=== PATIENT | female | born 1940 | race Caucasian/White ===

== ENCOUNTER 2017-05-08 14:45 | Observation (INO) | payer MEDICARE, OTHER ==
[~2017-05-08] VITALS: Ht 157.5 cm; Wt 80.0 kg
[2017-05-08 14:47] VITALS: BP 140/64; PULSE 97; RESP 12; O2SAT 99
--- NOTE | 2017-05-08 15:36 | PD ---
HPI Chief Complaint: Neuro Symptoms/ Deficits Time Seen by Provider: 15:20 Travel History International Travel<30 days: No Contact w/Intl Traveler<30days: No Traveled to known affect area: No History of Present Illness HPI 77-year-old female presents to the emergency department for evaluation of headache, nausea and lightheadedness that started this morning. Patient went to her primary care physician Dr. Sanchez initially for evaluation. Dr. Sanchez noticed nystagmus on physical exam and referred the patient to the emergency department. Patient denies any recent traumas or falls. Patient denies any chest pain or shortness of breath. Patient denies any prior neurological events. Patient denies any abdominal pain, vomiting or diarrhea. Patient denies any fevers, chills or malaise. PFSH Past Medical History Autoimmune Disease: Yes (RA LUPUS) Cardiovascular Problems: Yes COPD: Yes Hypertension: Yes Medical other: Yes (OSTEOPOROSIS) Respiratory: Yes ?: Not Past Surgical History Appendectomy: Yes Hysterectomy: Yes Joint Replacement: Yes (BILAT KNEE) Tonsillectomy: Yes Other Surgery: Yes (CATARACTS) Social History Alcohol Use: Yes (occ) Tobacco Use: No Substance Use: No Allergies-Medications (Allergen,Severity, Reaction): Uncoded Allergies: TAPE (Allergy, Intermediate, Rash, 05/08/17) Reported Meds & Prescriptions Reported Meds & Active Scripts Active Review of Systems Except as stated in HPI: all other systems reviewed are Neg Physical Exam Narrative GENERAL: Well-nourished well-developed 77-year-old female in no acute distress SKIN: Focused skin assessment warm/dry. HEAD: Atraumatic. Normocephalic. EYES: Pupils equal and round. No scleral icterus. No injection or drainage. Horizontal bilateral nystagmus noted. ENT: No nasal bleeding or discharge. Mucous membranes pink and moist. NECK: Trachea midline. No JVD. CARDIOVASCULAR: Regular rate and rhythm. No murmur appreciated. RESPIRATORY: No accessory muscle use. Clear to auscultation. Breath sounds equal bilaterally. GASTROINTESTINAL: Abdomen soft, non-tender, nondistended. Hepatic and splenic margins not palpable. MUSCULOSKELETAL: No obvious deformities. No clubbing. No cyanosis. No edema. NEUROLOGICAL: Awake and alert. No obvious cranial nerve deficits. Motor grossly within normal limits. Normal speech. NIH stroke scale: 0. PSYCHIATRIC: Appropriate mood and affect; insight and judgment normal. Data Data Last Documented VS Vital Signs Date Time Temp Pulse Resp B/P (MAP) Pulse Ox O2 Delivery O2 Flow Rate FiO2 05/08/17 16:07 79 131/63 (85) 84 142/62 (88) 88 112/55 (74) 05/08/17 14:47 12 99 Orders Orders Electrocardiogram (05/08/17 15:24) Prothrombin Time / Inr (Pt) (05/08/17 15:24) Act Partial Throm Time (Ptt) (05/08/17 15:24) Complete Blood Count With Diff (05/08/17 15:24) Comprehensive Metabolic Panel (05/08/17 15:24) Creatine Kinase (Cpk) (05/08/17 15:24) Troponin I (05/08/17 15:24) Urinalysis - C+S If Indicated (05/08/17 15:24) Ct Brain W/O Iv Contrast(Rout) (05/08/17 15:24) Chest, Single Ap (05/08/17 15:24) Ecg Monitoring (05/08/17 15:24) Iv Access Insert/Monitor (05/08/17 15:24) Oxygen Administration (05/08/17 15:24) Oximetry (05/08/17 15:24) Blood Glucose (05/08/17 15:24) Orthostatic Vital Signs (05/08/17 15:24) Cath For Specimen (05/08/17 16:45) Aspirin (Aspirin) (05/08/17 17:00) Admit Order (Ed Use Only) (05/08/17 17:22) Labs Laboratory Tests Test 05/08/17 15:25 05/08/17 16:55 White Blood Count 7.6 TH/MM3 Red Blood Count 4.07 MIL/MM3 Hemoglobin 12.4 GM/DL Hematocrit 38.0 % Mean Corpuscular Volume 93.2 FL Mean Corpuscular Hemoglobin 30.5 PG Mean Corpuscular Hemoglobin Concent 32.8 % Red Cell Distribution Width 16.3 % Platelet Count 205 TH/MM3 Mean Platelet Volume 8.4 FL Neutrophils (%) (Auto) 68.0 % Lymphocytes (%) (Auto) 17.1 % Monocytes (%) (Auto) 13.2 % Eosinophils (%) (Auto) 1.2 % Basophils (%) (Auto) 0.5 % Neutrophils # (Auto) 5.2 TH/MM3 Lymphocytes # (Auto) 1.3 TH/MM3 Monocytes # (Auto) 1.0 TH/MM3 Eosinophils # (Auto) 0.1 TH/MM3 Basophils # (Auto) 0.0 TH/MM3 CBC Comment DIFF FINAL Differential Comment Prothrombin Time 10.0 SEC Prothromb Time International Ratio 0.9 RATIO Activated Partial Thromboplast Time 25.1 SEC Blood Urea Nitrogen 19 MG/DL Creatinine 1.27 MG/DL Random Glucose 92 MG/DL Total Protein 7.2 GM/DL Albumin 3.3 GM/DL Calcium Level 8.7 MG/DL Alkaline Phosphatase 88 U/L Aspartate Amino Transf (AST/SGOT) 25 U/L Alanine Aminotransferase (ALT/SGPT) 24 U/L Total Bilirubin 0.4 MG/DL Sodium Level 141 MEQ/L Potassium Level 3.9 MEQ/L Chloride Level 106 MEQ/L Carbon Dioxide Level 27.3 MEQ/L Anion Gap 8 MEQ/L Estimat Glomerular Filtration Rate 41 ML/MIN Total Creatine Kinase 47 U/L Troponin I LESS THAN 0.02 NG/ML Urine Color YELLOW Urine Turbidity HAZY Urine pH 5.5 Urine Specific [place] 1.020 Urine Protein TRACE mg/dL Urine Glucose (UA) NEG mg/dL Urine Ketones NEG mg/dL Urine Occult Blood NEG Urine Nitrite NEG Urine Bilirubin NEG Urine Urobilinogen LESS THAN 2.0 MG/DL Urine Leukocyte Esterase SMALL Urine RBC 1 /hpf Urine WBC 3 /hpf Urine Squamous Epithelial Cells 3 /hpf Urine Bacteria RARE /hpf Urine Hyaline Casts 9 /lpf Urine Mucus MOD /lpf Microscopic Urinalysis Comment CATH-CULTURE IND [facility] Medical Decision Making Medical Screen Exam Complete: Yes Emergency Medical Condition: Yes Medical Record Reviewed: Yes Differential Diagnosis TIA versus CVA versus electrolytic imbalance versus ACS versus dehydration versus near-syncope versus vertigo Narrative Course A 77-year-old pleasant female patient in no apparent distress presents to the emergency department with complaint of headache, nausea and lightheadedness that started this morning. Patient was referred here by primary care to rule out neurological event after nystagmus this was noted on physical exam. Patient denies any chest pain, shortness breath, fever, chills or malaise. Patient denies any abdominal pain, vomiting or diarrhea. Patient has history of hypertension, lipidemia, COPD and arthritis. Patient states "it feels like I stand up too fast" referring to the lightheadedness she is experiencing. NIH stroke scale: 0. No focal neurological deficits noted. EKG, CBC, CMP, PT/INR, troponin, CK, UA, CT of the brain without contrast, chest x-ray, and orthostatic vital signs ordered and pending. EKG shows sinus rhythm with heart rate 77 CBC shows no acute abnormality CMP shows impaired renal function and low albumin at 3.3 otherwise shows no acute abnormalities PT/INR shows no acute abnormality TROP less than 0.02 CK with a normal limits at 47 UA shows high bacteria, culture indicated and pending CT BRAIN shows normal examination CXR shows compensated cardiomegaly and minimal atelectatic changes in the right base with confluent infiltrate ORTHOSTATIC V/S shows a decrease in blood pressure from 142/62 sitting to 112/ 55 standing. Patient is symptomatic with lightheadedness. S paged for admission. Dr Castaneda accepted admission. Patient will be admitted to the hospital for observation. Diagnosis Primary Impression: Lightheadedness Additional Impressions: Orthostatic hypotension Nystagmus Admitting Information Admitting Physician Requests: Observation Micheline Barney May 08, 2017 15:36
--- NOTE | 2017-05-08 15:59 | RADRPT ---
EXAM DATE/TIME: 05/08/2017 15:38 [facility] COMPARISON: No previous studies available for comparison. INDICATIONS : Short of breath. MEDICAL HISTORY : None. SURGICAL HISTORY : None. ENCOUNTER: Initial ACUITY: 1 day PAIN SCORE: 0/10 LOCATION: Bilateral chest FINDINGS: A single view of the chest demonstrates the lungs to be symmetrically aerated without evidence of mas s, infiltrate or effusion. Minimal atelectatic changes in the right base. Heart size is prominent but well compensated. Degenerative spurring of the dorsal spine. Osseous structures are otherwise intac t. CONCLUSION: 1. Compensated cardiomegaly. 2. Minimal atelectatic changes in the right base with no confluent infiltrate. Casey Mills MD on May 08, 2017 at 15:53 Board Certified Radiologist. This report was verified electronically.
--- NOTE | 2017-05-08 15:59 | RADRPT ---
EXAM DATE/TIME: 05/08/2017 15:40 [facility] COMPARISON: No previous studies available for comparison. INDICATIONS : Cephalgia, unsteady. RADIATION DOSE: 56.35 CTDIvol (mGy) MEDICAL HISTORY : Hypertension. Chronic obstructive pulmonary disease. Lupus. SURGICAL HISTORY : Hysterectomy. ENCOUNTER: Initial ACUITY: 1 day PAIN SCALE: 6/10 LOCATION: Bilateral cranial TECHNIQUE: Multiple contiguous axial images were obtained of the head. Using automated exposure control and adj ustment of the mA and/or kV according to patient size, radiation dose was kept as low as reasonably a chievable to obtain optimal diagnostic quality images. DICOM format image data is available electro nically for review and comparison. FINDINGS: CEREBRUM: The ventricles are normal for age. No evidence of midline shift, mass lesion, hemorrhage or acute in farction. No extra-axial fluid collections are seen. POSTERIOR FOSSA: The cerebellum and brainstem are intact. The 4th ventricle is midline. The cerebellopontine angle i s unremarkable. EXTRACRANIAL: The visualized portion of the orbits is intact. SKULL: The calvaria is intact. No evidence of skull fracture. CONCLUSION: Normal examination. David Wayne MD on May 08, 2017 at 15:54 Board Certified Radiologist. This report was verified electronically.
[2017-05-08 16:07] VITALS: BP_SYST 112; BP_SYST 131; BP_SYST 142; BP_DIAS 55; BP_DIAS 62; BP_DIAS 63
[2017-05-08 16:22] LABS: AUTOMATED NEUTROPHIL # 5.2 TH/MM3 (1.8-7.7); BASOPHIL % 0.5 % (0.0-2.0); EOSINOPHIL # 0.1 TH/MM3 (0-0.4); EOSINOPHIL % 1.2 % (0.0-4.0); HEMO FLAGS DIFF FINAL; LYMPH % 17.1 % (9.0-44.0); LYMPHOCYTE # 1.3 TH/MM3 (1.0-4.8); MEAN CELL VOLUME 93.2 FL (80.0-100.0); MEAN CORPUSCULAR HEMOGLOBIN 30.5 PG (27.0-34.0); MEAN CORPUSCULAR HGB CONC 32.8 % (32.0-36.0); MONO % 13.2 % (0.0-8.0); PLATELET COUNT 205 TH/MM3 (150-450); RED BLOOD COUNT 4.07 MIL/MM3 (4.00-5.30); RED CELL DISTRIBUTION WIDTH 16.3 % (11.6-17.2); WHITE BLOOD COUNT 7.6 TH/MM3 (4.0-11.0)
[2017-05-08 16:28] LABS: APTT (PATIENT) 25.1 SEC (24.3-30.1); INTERNATIONAL NORMALIZED RATIO 0.9 RATIO
[2017-05-08 16:32] LABS: ALT (GPT) 24 U/L (10-53); ANION GAP 8 MEQ/L (5-15); AST (GOT) 25 U/L (15-37); BICARBONATE 27.3 MEQ/L (21.0-32.0); BLOOD UREA NITROGEN 19 MG/DL (7-18); CHLORIDE 106 MEQ/L (98-107); GLOMERULAR FILTRATION RATE 41 ML/MIN (>89); POTASSIUM 3.9 MEQ/L (3.5-5.1); SODIUM (NA) 141 MEQ/L (136-145)
[2017-05-08 16:35] LABS: ALKALINE PHOSPHATASE 88 U/L (45-117); TOTAL BILIRUBIN ADULT 0.4 MG/DL (0.2-1.0)
[2017-05-08 16:37] LABS: CREATINE KINASE 47 U/L (26-192)
[2017-05-08] MEDS ORDERED: ASPIRIN 325 MG TAB PO ONE (17:00)
[2017-05-08 17:31] LABS: BACTERIA, URINE RARE /hpf; BLOOD, URINE NEG (NEG); COMMENT (UR) CATH-CULTURE IND; CULTURE IF INDICATED CATH CULTURE IND; GLUCOSE,URINE NEG (NEG); HYALINE CAST, URINE 9 /lpf (RARE); KETONE, URINE NEG (NEG); MUCUS URINE MOD /lpf (OCC); NITRITE,URINE NEG (NEG); PH, URINE 5.5 (5.0-8.5); SQUAMOUS EPITHELIAL CELL URINE 3 /hpf (0-5); URINE COLOR YELLOW (YELLW/STRAW)
--- NOTE | 2017-05-08 17:35 | PD ---
Physical Exam Date Seen by Provider: May 08, 2017 Time Seen by Provider: 16:30 Narrative I, Dr. Chan, have reviewed the advance practice practitioner's documentation and am in agreement, met with the patient face to face, made the diagnosis, and the medical decision making was done by me. *My assessment and Findings: Patient seen and evaluated with nurse practitioner , please seen his practitioner note for further details. Sent in by Dr. Sanchez for dizziness, headaches, nystagmus, feeling unsteady on her feet, concerns for possible CVA for several days. On exam, she is quite steady on Romberg testing but does not have any other focal neurological deficits, horizontal nystagmus notable. Symptoms of fairly nonspecific, no obvious vertigo symptoms. She has no pronator drift. EKG shows NSR, no ST elevation or depression, and no arrhythmias. No significant T-wave inversions. Laboratory Tests Test 05/08/17 15:25 05/08/17 16:55 Monocytes (%) (Auto) 13.2 % (0.0-8.0) Monocytes # (Auto) 1.0 TH/MM3 (0-0.9) Blood Urea Nitrogen 19 MG/DL (7-18) Creatinine 1.27 MG/DL (0.50-1.00) Albumin 3.3 GM/DL (3.4-5.0) Estimat Glomerular Filtration Rate 41 ML/MIN (>89) Troponin I LESS THAN 0.02 NG/ML Urine Turbidity HAZY (CLEAR) Urine Leukocyte Esterase SMALL (NEG) Urine Bacteria RARE /hpf (NONE) Urine Mucus MOD /lpf (OCC) Last [address] 05/08/17 1524 Signed Impressions: Service Date/Time: Monday, May 08, 2017 15:40 - CONCLUSION: Normal examination. David Wayne MD Chest X-Ray 05/08/17 1524 Signed Impressions: Service Date/Time: Monday, May 08, 2017 15:38 - CONCLUSION: 1. Compensated cardiomegaly. 2. Minimal atelectatic changes in the right base with no confluent infiltrate. Casey Mills MD CT of the brain was negative for any signs of acute processes. Chest x-ray shows compensated cardiomegaly but was otherwise not significant further acute processes. UA did show mild UTI but is unlikely to be causing these neurological symptoms. At this point, IV fluids and been given to the patient and aspirin has been given. Plan would be to admit the patient for further evaluation of symptoms. Case is discussed with Dr. Castaneda for admission. Data Data Last Documented VS Vital Signs Date Time Temp Pulse Resp B/P (MAP) Pulse Ox O2 Delivery O2 Flow Rate FiO2 05/08/17 16:07 79 131/63 (85) 84 142/62 (88) 88 112/55 (74) 05/08/17 14:47 12 99 Orders Orders Electrocardiogram (05/08/17 15:24) Prothrombin Time / Inr (Pt) (05/08/17 15:24) Act Partial Throm Time (Ptt) (05/08/17 15:24) Complete Blood Count With Diff (05/08/17 15:24) Comprehensive Metabolic Panel (05/08/17 15:24) Creatine Kinase (Cpk) (05/08/17 15:24) Troponin I (05/08/17 15:24) Urinalysis - C+S If Indicated (05/08/17 15:24) Ct Brain W/O Iv Contrast(Rout) (05/08/17 15:24) Chest, Single Ap (05/08/17 15:24) Ecg Monitoring (05/08/17 15:24) Iv Access Insert/Monitor (05/08/17 15:24) Oxygen Administration (05/08/17 15:24) Oximetry (05/08/17 15:24) Blood Glucose (05/08/17 15:24) Orthostatic Vital Signs (05/08/17 15:24) Cath For Specimen (05/08/17 16:45) Aspirin (Aspirin) (05/08/17 17:00) Admit Order (Ed Use Only) (05/08/17 17:22) Labs Laboratory Tests Test 05/08/17 15:25 05/08/17 16:55 White Blood Count 7.6 TH/MM3 Red Blood Count 4.07 MIL/MM3 Hemoglobin 12.4 GM/DL Hematocrit 38.0 % Mean Corpuscular Volume 93.2 FL Mean Corpuscular Hemoglobin 30.5 PG Mean Corpuscular Hemoglobin Concent 32.8 % Red Cell Distribution Width 16.3 % Platelet Count 205 TH/MM3 Mean Platelet Volume 8.4 FL Neutrophils (%) (Auto) 68.0 % Lymphocytes (%) (Auto) 17.1 % Monocytes (%) (Auto) 13.2 % Eosinophils (%) (Auto) 1.2 % Basophils (%) (Auto) 0.5 % Neutrophils # (Auto) 5.2 TH/MM3 Lymphocytes # (Auto) 1.3 TH/MM3 Monocytes # (Auto) 1.0 TH/MM3 Eosinophils # (Auto) 0.1 TH/MM3 Basophils # (Auto) 0.0 TH/MM3 CBC Comment DIFF FINAL Differential Comment Prothrombin Time 10.0 SEC Prothromb Time International Ratio 0.9 RATIO Activated Partial Thromboplast Time 25.1 SEC Blood Urea Nitrogen 19 MG/DL Creatinine 1.27 MG/DL Random Glucose 92 MG/DL Total Protein 7.2 GM/DL Albumin 3.3 GM/DL Calcium Level 8.7 MG/DL Alkaline Phosphatase 88 U/L Aspartate Amino Transf (AST/SGOT) 25 U/L Alanine Aminotransferase (ALT/SGPT) 24 U/L Total Bilirubin 0.4 MG/DL Sodium Level 141 MEQ/L Potassium Level 3.9 MEQ/L Chloride Level 106 MEQ/L Carbon Dioxide Level 27.3 MEQ/L Anion Gap 8 MEQ/L Estimat Glomerular Filtration Rate 41 ML/MIN Total Creatine Kinase 47 U/L Troponin I LESS THAN 0.02 NG/ML Urine Color YELLOW Urine Turbidity HAZY Urine pH 5.5 Urine Specific [place] 1.020 Urine Protein TRACE mg/dL Urine Glucose (UA) NEG mg/dL Urine Ketones NEG mg/dL Urine Occult Blood NEG Urine Nitrite NEG Urine Bilirubin NEG Urine Urobilinogen LESS THAN 2.0 MG/DL Urine Leukocyte Esterase SMALL Urine RBC 1 /hpf Urine WBC 3 /hpf Urine Squamous Epithelial Cells 3 /hpf Urine Bacteria RARE /hpf Urine Hyaline Casts 9 /lpf Urine Mucus MOD /lpf Microscopic Urinalysis Comment CATH-CULTURE IND [facility] Medical Record Reviewed: Yes Supervised Visit with CIARAN: Yes Differential Diagnosis Dizziness, headaches, nystagmus: TIA versus CVA versus other acute intra- cranial processes versus metabolic issues versus medication side effects versus dysrhythmias Diagnosis Primary Impression: Lightheadedness Additional Impressions: Orthostatic hypotension Nystagmus Admitting Information Admitting Physician Requests: Admit Ana Chan MD May 08, 2017 17:35
[2017-05-08] MEDS ORDERED: ACETAMINOPHEN 325 MG TAB PO PRN (17:45)
[2017-05-08] MEDS ORDERED: ONDANSETRON HCL 4 MG/2 ML VIAL IVP PRN (17:45)
[2017-05-08] MEDS ORDERED: SODIUM CHLORIDE 0.9% FLUSH 10 ML FLUSH IV FLUSH PRN (17:45)
[2017-05-08] MEDS ORDERED: LACTULOSE SYRUP 20 GM/30 ML CUP PO PRN (17:45)
[2017-05-08] MEDS ORDERED: NALOXONE HCL 0.4 MG/ML AMP IV PUSH PRN (17:45)
[2017-05-08] MEDS ORDERED: SENNOSIDES 8.6 MG TAB PO PRN (17:45)
[2017-05-08] MEDS ORDERED: BISACODYL 10 MG SUPP RECTAL PRN (17:45)
[2017-05-08] MEDS ORDERED: MAGNESIUM HYDROXIDE SUSP 30 ML CUP PO PRN (17:45)
[2017-05-08] MEDS ORDERED: SODIUM CHLOR 0.9% 1000 ML INJ 1,000 ML IV SCH (18:00)
[2017-05-08] MEDS ORDERED: ALBU.5I NEB (18:12)
[2017-05-08] MEDS ORDERED: PERC5TAB12 PO (18:12)
[2017-05-08] MEDS ORDERED: HYDR12.57 PO (18:12)
[2017-05-08] MEDS ORDERED: METH0.35 SQ (18:12)
[2017-05-08] MEDS ORDERED: SYMB160A INH (18:12)
[2017-05-08] MEDS ORDERED: CARV3.12 PO (18:12)
[2017-05-08] MEDS ORDERED: OMEGCAP PO (18:12)
[2017-05-08] MEDS ORDERED: LOSA100T PO (18:12)
[2017-05-08] MEDS ORDERED: DENO60P SQ (18:12)
[2017-05-08] MEDS ORDERED: ALBUAER3 INH (18:12)
[2017-05-08] MEDS ORDERED: LIDO1LOT TOPICAL (18:12)
--- NOTE | 2017-05-08 18:37 | HHI.PR ---
Objective Objective Results - Vital Signs Date Time Temp Pulse Resp B/P (MAP) Pulse Ox O2 Delivery O2 Flow Rate FiO2 05/08/17 16:07 79 131/63 (85) 84 142/62 (88) 88 112/55 (74) 05/08/17 14:47 97 12 140/64 (89) 99 Result Diagram: 05/08/17 1525 05/08/17 1525 A/P Assessment and Plan [id number] Add UTI Sophia Bliss May 08, 2017 18:37
[2017-05-08] MEDS: SODIUM CHLOR 0.9% 1000 ML INJ 1,000 ML IV SCH (18:47)
[2017-05-08] MEDS: MECLIZINE HCL 25 MG TAB PO SCH ×2 (18:47→22:57)
[2017-05-08 19:00] VITALS: BP 142/62; PULSE 83; RESP 18; O2SAT 99
--- NOTE | 2017-05-08 19:19 | MH ---
cc: JANEL SANTANA MD DATE OF ADMISSION 05/08/2017 DATE OF 1940 This is Sophia Bliss nurse practitioner dictating with Dr. Santana present. Travel in the last 30 days, none. SYMPTOMS Presyncope, headache. HISTORY OF THE PRESENT ILLNESS This is a pleasant 77-year-old white female who has been in her usual state of health up until the past few months. She has noted some lightheadedness and presyncope symptoms. She states at one point she has passed out. She has been seeing her regular PCP and was also sent to Dr. Malloy for further testing. States at this point they have not found anything abnormal with her testing. It is uncertain whether she has had a stress test at this point. The patient did note a severe headache this morning when awakening. She also noted symptoms of nausea and lightheadedness when she up attempting to ambulate. She had uncontrollable nose bleed for approximately 30 minutes and states that she has had nose bleeds in the past. The patient states that she has the sensation of spinning herself and the room is holding still. She does have some shortness of breath off and on and has a significant history of asthma and COPD. She is positive for nystagmus on examination and in the emergency room setting was positive with orthostatic blood pressure changes. PAST MEDICAL HISTORY 1. Rheumatoid arthritis. 2. Gastroesophageal reflux disease. 3. Chronic obstructive pulmonary disease. 4. Asthma. 5. Osteoporosis. 6. Hypertension. PAST SURGICAL HISTORY 1. Bilateral knee replacements. 2. Cataract surgery. 3. Appendectomy. 4. Hysterectomy. 5. Tonsillectomy. SOCIAL HISTORY Lives with her significant other. Does consume wine and occasional alcohol on a social level. Denies any tobacco or illicit drugs. ALLERGIES TAPE. MEDICATIONS Reported medications from a previous list: 1. Albuterol. 2. Fish oil. 3. Carvedilol. 4. Losartan. 5. Oxycodone. 6. Hydrochlorothiazide. 7. Symbicort. 8. Lidocaine topical p.r.n. for pain. 9. Prolia. 10. Rasuvo, methotrexate subcu weekly. REVIEW OF SYSTEMS A 14 point review was obtained. The patient denies any dysuria. States that she has been voiding usual amounts except for the past 24 hours, increased voiding noted. Positive for raspy voice possibly secondary to her gastroesophageal reflux disease. Presyncopal episodes, headaches. Positive for nystagmus and orthostatic blood pressures. She does have a chronic cough. Other systems negative or unremarkable. PHYSICAL EXAMINATION VITAL SIGNS: Pulse is between 79-97, respiratory rate between 12-20, blood pressure 140/64 initially. Orthostatics show supine 131/63, sitting 142/62 and standing 112/55. O2 saturation 99% currently on room air. GENERAL: Mildly obese white female looks to be her stated age resting on the bed. She is a fair historian to general information but cannot remember time or particulars to her recent and current testing and events. SKIN: Pale, warm, warm and dry. She has a trace of lower extremity edema with some obvious spiders veins. HEENT: Atraumatic, normocephalic. MOHAN at 3. Positive for nystagmus. No scleral icterus. Mucous membranes are pale pink and moist. Tongue is dry. NECK: Supple. CARDIOVASCULAR: S1-S2. No obvious murmurs, rubs, gallops. Rhythm is regular. Trace of lower extremity edema. Lower extremities are warm to touch. LUNGS: Mild diminished sounds but no obvious wheezing, rhonchi or rales. ABDOMEN: Round, soft and nontender, nondistended. Active bowel sounds. MUSCULOSKELETAL: Moves her extremities on purpose. She has equal hand associate director finance which are 4/5 bilaterally. NEUROLOGIC: Tongue is midline and tongue tied. Speech is clear and understandable. PSYCHIATRIC: Appropriate mood and affect. LABORATORY DATA Diagnostic data, WBC 7.6, RBC 4.07, hemoglobin 12.4, hematocrit 38, platelet count 205. Abnormal dif includes monocyte percentage 13.2. PT/INR is 0.9. Chemistry sodium 141, potassium 3.9, chloride 106, carbon dioxide 27.3, anion gap 8, BUN 19, creatinine 1.27, GFR 41, random glucose 92, calcium 8.7, total bilirubin 0.4, AST 25, ALT 24, alkaline phosphatase 88. Total creatinine kinase 47. Troponin less than 0.02. Protein 7.2, albumin 3.40. Urine is yellow, hazy, pH is 5.5, specific gravity 1.020, trace of protein. Negative for glucose, ketones, occult blood, nitrites, bilirubin. Small amount of leukocyte esterase. Rare amount of bacteria. Moderate amount of mucus. Culture is indicated. IMAGING A chest x-ray shows compensated cardiomegaly, minimal atelectatic changes to the right base with no congruent infiltrate. Head CT scan, normal examination. ASSESSMENT AND PLAN 1. Presyncopal episodes with headache. 2. Positive nystagmus. 3. Orthostatic hypotension. 4. Epistaxis. 5. Urinary tract infection. 6. History of COPD and asthma. Our plan is to monitor her vital signs q.4h and as warranted. In the emergency room the patient had initial labs and CT scan done. Continuous ECG monitoring and IV access. We will continue to monitor ECG, place her aspirin. Reconcile medications. Monitor bowel regimen. Start her on heparin subcutaneous for deep venous thrombosis prophylaxis. Sequential compression devices have been ordered. Physical therapy request to evaluate and treat in the morning. We will have lab work drawn in the morning. As needed medications for pain, nausea, fever. IV fluids about 100 cc an hour normal saline for hydration. Intake and output. Healthy heart diet. Out of bed with assistance. Neurological checks q.4h. We will place her on observation for now and consult neurology for his expert opinion. Urine culture is pending. We will continue to monitor. Dictated by: MISSY Rutledge MD GARY Coleman/MICHAEL /6:25 PM /6:44 PM seen, examined by myself, Dr Santana, today Discussed with patient admitted with vertigo pre syncope orthostatic hypotension Discussed with nurse Discussed with mid level provider The exam, history, and the medical decision-making described in the above note were completed with the assistance of the mid-level provider. I reviewed the findings presented. I attest that I had a [id number] encounter with the patient on the same day, and personally performed and documented my assessment and findings in the medical record MTDD
--- NOTE | 2017-05-08 19:39 | RADRPT ---
EXAM DATE/TIME: 05/08/2017 18:48 [facility] COMPARISON: No previous studies available for comparison. INDICATIONS : Syncope. MEDICAL HISTORY : Hypertension. Chronic obstructive pulmonary disease. Osteoporosis. Alcohol use. SURGICAL HISTORY : Tonsillectomy. Appendectomy. Hysterectomy. Bilateral knee replacement. Cataract surgery. ENCOUNTER: Initial ACUITY: 1 day PAIN SCORE: 2/10 LOCATION: Bilateral neck PEAK SYSTOLIC VELOCITIES (cm/sec): ICA/CCA RATIO: Right: 1.1 Left: 1.2 ICA: Right: 54.8 Left: 77.5 CCA: Right: 49.0 Left: 66.8 ECA: Right: 51.6 Left: 79.0 VERTEBRAL: Right: 51.5 antegrade Left: 39.5 antegrade Elevated flow velocities and ICA/CCA ratios have been found to correlate with increased degrees of vessel stenosis, calculated as percentage of diameter relative to a normal segment of distal ICA/CCA FINDINGS: RIGHT CAROTID: No significant stenosis is visualized. The waveforms are within normal limits. LEFT CAROTID: No significant stenosis is visualized. The waveforms are within normal limits. VERTEBRAL ARTERIES: Antegrade flow is seen in both vertebral arteries. MISCELLANEOUS: None. CONCLUSION: No hemodynamically significant stenosis. Liam Bar MD on May 08, 2017 at 19:37 Board Certified Radiologist. This report was verified electronically.
[2017-05-08] MEDS ORDERED: LORazepam 2 MG/ML VIAL ONE (19:49)
[2017-05-08] MEDS ORDERED: LORazepam 2 MG/ML VIAL IV PUSH ONE (20:00)
[2017-05-08] MEDS ORDERED: LORazepam 2 MG/ML VIAL IV PUSH PRN (20:00)
[2017-05-08] MEDS ORDERED: cefTRIAXone INJ 1,000 MG in SODIUM CHLORIDE 0.9% INJ 100 ML IV SCH (20:00)
[2017-05-08 20:21] VITALS: PULSE 86
--- NOTE | 2017-05-08 20:28 | RADRPT ---
EXAM DATE/TIME: 05/08/2017 19:57 [facility] COMPARISON: No previous studies available for comparison. INDICATIONS : Stroke. MEDICAL HISTORY : Hypertension. Chronic obstructive pulmonary disease. Rheumatoid arthritis. Lupus. SURGICAL HISTORY : Tonsillectomy. Appendectomy. Hysterectomy. Bi-lateral knee replacement. ENCOUNTER: Subsequent ACUITY: 1 day PAIN SCORE: 3/10 LOCATION: cranial TECHNIQUE: Multiplanar, multisequence MRI of the brain was performed without contrast. FINDINGS: CEREBRUM: The ventricles are normal for age. No evidence of midline shift, mass lesion, hemorrhage or acute in farction. No extraaxial fluid collections are seen. The pituitary gland and suprasellar cistern are normal in configuration. WHITE MATTER: Mild periventricular and subcortical white matter small vessel ischemic changes are noted bilaterally . POSTERIOR FOSSA: The cerebellum and brainstem are intact. The 4th ventricle is midline. The cerebellopontine angle is unremarkable. The cerebellar tonsils are normal in position. DIFFUSION IMAGING: No focal areas of restricted diffusion are seen. No evidence of acute infarction. EXTRACRANIAL: The visualized portions of the orbits are unremarkable. Small mucous retention cyst is noted within t he left maxillary sinus. CONCLUSION: 1. Mild periventricular and subcortical white matter small vessel ischemic changes bilaterally. 2. No acute infarct, acute hemorrhage, mass effect or extra-axial fluid collections. 3. Small left maxillary mucous retention cyst. Liam Bar MD on May 08, 2017 at 20:24 Board Certified Radiologist. This report was verified electronically.
--- NOTE | 2017-05-08 20:30 | RADRPT ---
EXAM DATE/TIME: 05/08/2017 19:57 [facility] COMPARISON: No previous studies available for comparison. INDICATIONS : CVA. MEDICAL HISTORY : Hypertension. Chronic obstructive pulmonary disease. Rheumatoid arthritis. Lupus. SURGICAL HISTORY : Tonsillectomy. Appendectomy. Hysterectomy. Bi-lateral knee replacement. ENCOUNTER: Subsequent ACUITY: 1 day PAIN SCORE: 3/10 LOCATION: cranial Please note a normal MRA of the brain does not entirely exclude the possibility of a small aneurysm, nor the possibility of distal intracranial vessel disease. TECHNIQUE: 3D time of flight MRA was performed. Source images, multiplanar STS MIP, and 3D volume MIP reconstru ctions were reviewed. FINDINGS: There is excellent visualization of the major intracranial arteries out to the second-order branch ve ssels. There is no evidence for aneurysm, vessel truncation or stenosis, and no evidence for vascula r malformation. There is a patent right posterior communicating artery filling the right posterior ce rebral artery. CONCLUSION: 1. Patent right posterior communicating artery filling the right posterior cerebral artery. 2. No significant stenosis, occlusion or aneurysm. Liam Bar MD on May 08, 2017 at 20:27 Board Certified Radiologist. This report was verified electronically.
[2017-05-08] MEDS: DOCUSATE SODIUM 50 MG/SENNA 8.6 MG TAB PO SCH (20:43)
[2017-05-08] MEDS: HEPARIN SODIUM - SQ 10,000 UNITS/ML VIAL SQ SCH (20:43)
[2017-05-08] MEDS: SODIUM CHLORIDE 0.9% FLUSH 10 ML FLUSH IV FLUSH SCH (20:44)
[2017-05-08 20:50] VITALS: BP 145/66; PULSE 68; RESP 18; O2SAT 98
[2017-05-08 21:20] VITALS: BP_SYST 142; BP_SYST 158; BP_SYST 174; BP_DIAS 64; BP_DIAS 72; BP_DIAS 73; PULSE 99; RESP 20; TEMP 97.5; O2SAT 96
[2017-05-09] VITALS: BP 135/63; PULSE 87; RESP 18; TEMP 98.1; O2SAT 99
[2017-05-09] MEDS: SODIUM CHLOR 0.9% 1000 ML INJ 1,000 ML IV SCH ×2 (03:39→18:16)
[2017-05-09 04:00] VITALS: PULSE 82
[2017-05-09 04:51] VITALS: BP 139/63; PULSE 79; RESP 16; TEMP 98.2; O2SAT 97
[2017-05-09] MEDS: MECLIZINE HCL 25 MG TAB PO SCH ×2 (05:08→13:14)
[2017-05-09 05:09] LABS: AUTOMATED NEUTROPHIL # 4.1 TH/MM3 (1.8-7.7); BASOPHIL % 0.3 % (0.0-2.0); EOSINOPHIL # 0.2 TH/MM3 (0-0.4); EOSINOPHIL % 2.5 % (0.0-4.0); HEMATOCRIT 35.5 % (35.0-46.0); HEMO FLAGS DIFF FINAL; LYMPH % 23.4 % (9.0-44.0); LYMPHOCYTE # 1.5 TH/MM3 (1.0-4.8); MEAN CELL VOLUME 93.3 FL (80.0-100.0); MEAN CORPUSCULAR HEMOGLOBIN 31.6 PG (27.0-34.0); MEAN CORPUSCULAR HGB CONC 33.8 % (32.0-36.0); MONO % 8.2 % (0.0-8.0); NEUT % 65.6 % (16.0-70.0); PLATELET COUNT 184 TH/MM3 (150-450); RED CELL DISTRIBUTION WIDTH 16.2 % (11.6-17.2); WHITE BLOOD COUNT 6.3 TH/MM3 (4.0-11.0)
[2017-05-09 05:19] LABS: POTASSIUM 4.1 MEQ/L (3.5-5.1)
[2017-05-09 05:31] LABS: INDIRECT BILIRUBIN 0.3 MG/DL (0.0-0.8); TOTAL BILIRUBIN ADULT 0.4 MG/DL (0.2-1.0)
[2017-05-09 07:40] VITALS: PULSE 70
[2017-05-09] MEDS: SODIUM CHLORIDE 0.9% FLUSH 10 ML FLUSH IV FLUSH SCH (09:00)
[2017-05-09] MEDS ORDERED: LOSARTAN 50 MG TAB PO SCH (09:00)
[2017-05-09] MEDS ORDERED: HYDROCHLOROTHIAZIDE 12.5 MG CAP PO SCH (09:00)
[2017-05-09] MEDS ORDERED: CARVEDILOL 3.125 MG TAB PO SCH (09:00)
[2017-05-09] MEDS ORDERED: BUDESONIDE-FORMOTEROL 160/4.5 MCG INHALER INH SCH (09:00)
[2017-05-09] MEDS: DOCUSATE SODIUM 50 MG/SENNA 8.6 MG TAB PO SCH (09:09)
[2017-05-09] MEDS: HEPARIN SODIUM - SQ 10,000 UNITS/ML VIAL SQ SCH (09:10)
[2017-05-09] MEDS ORDERED: RESP: ALBUTEROL 2.5 MG/IPRATROPIUM 0.5 MG NEB (PRN) NEB (09:15)
--- NOTE | 2017-05-09 10:29 | HHI.FF ---
Face to Face Verification Diagnosis: (1) Orthostatic hypotension (2) Lightheadedness (3) Nystagmus Physical Therapy Order: Evaluate and Treat Home Health Nursing Order: Medical education Nursing assessment with vital signs I have seen patient Sari Winslow on 05/09/17. My clinical findings support the need for the requested home health care services because: Patient has SOB Deconditioned w/ increased weakness High risk of falls I certify that my clinical findings support that this patient is homebound because: Unsafe to leave home unassisted Dawna Joyner [facility] May 09, 2017 10:29
--- NOTE | 2017-05-09 10:29 | HHI.PR ---
Subjective Subjective Remarks Feeling tired and sleepy, had Antivert No dizziness No chest pain No shortness of breath No fever Telemetry reviewed, sinus rhythm, no ectopy Dr. Stephens at bedside to examine as well. family member at bsd Review of Systems Constitutional Constitutional Remarks 12 point review of systems completed, negative except as noted above Vitals/Results Vital Signs Vital Signs Date Time Temp Pulse Resp B/P (MAP) Pulse Ox O2 Delivery O2 Flow Rate FiO2 05/09/17 04:51 98.2 79 16 139/63 (88) 97 05/09/17 04:00 82 05/09/17 00:00 98.1 87 18 135/63 (87) 99 05/09/17 00:00 87 05/08/17 23:10 21 05/08/17 21:20 97.5 99 20 174/73 (106) 96 05/08/17 21:20 174/73 (106) 158/72 (100) 142/64 (90) 05/08/17 21:07 05/08/17 20:50 68 18 145/66 (92) 98 Room Air 05/08/17 20:21 86 05/08/17 19:00 83 18 142/62 (88) 99 Room Air 05/08/17 16:07 79 131/63 (85) 84 142/62 (88) 88 112/55 (74) 05/08/17 14:47 97 12 140/64 (89) 99 CBC/BMP: 05/09/17 0339 05/09/17 0339 Lab Results Laboratory Tests Test 05/08/17 15:25 05/08/17 16:55 05/09/17 03:39 White Blood Count 7.6 TH/MM3 6.3 TH/MM3 Red Blood Count 4.07 MIL/MM3 3.80 MIL/MM3 Hemoglobin 12.4 GM/DL 12.0 GM/DL Hematocrit 38.0 % 35.5 % Mean Corpuscular Volume 93.2 FL 93.3 FL Mean Corpuscular Hemoglobin 30.5 PG 31.6 PG Mean Corpuscular Hemoglobin Concent 32.8 % 33.8 % Red Cell Distribution Width 16.3 % 16.2 % Platelet Count 205 TH/MM3 184 TH/MM3 Mean Platelet Volume 8.4 FL 8.6 FL Neutrophils (%) (Auto) 68.0 % 65.6 % Lymphocytes (%) (Auto) 17.1 % 23.4 % Monocytes (%) (Auto) 13.2 % 8.2 % Eosinophils (%) (Auto) 1.2 % 2.5 % Basophils (%) (Auto) 0.5 % 0.3 % Neutrophils # (Auto) 5.2 TH/MM3 4.1 TH/MM3 Lymphocytes # (Auto) 1.3 TH/MM3 1.5 TH/MM3 Monocytes # (Auto) 1.0 TH/MM3 0.5 TH/MM3 Eosinophils # (Auto) 0.1 TH/MM3 0.2 TH/MM3 Basophils # (Auto) 0.0 TH/MM3 0.0 TH/MM3 CBC Comment DIFF FINAL DIFF FINAL Differential Comment Prothrombin Time 10.0 SEC Prothromb Time International Ratio 0.9 RATIO Activated Partial Thromboplast Time 25.1 SEC Blood Urea Nitrogen 19 MG/DL 15 MG/DL Creatinine 1.27 MG/DL 0.93 MG/DL Random Glucose 92 MG/DL 90 MG/DL Total Protein 7.2 GM/DL 6.4 GM/DL Albumin 3.3 GM/DL 2.9 GM/DL Calcium Level 8.7 MG/DL 8.3 MG/DL Alkaline Phosphatase 88 U/L 84 U/L Aspartate Amino Transf (AST/SGOT) 25 U/L 21 U/L Alanine Aminotransferase (ALT/SGPT) 24 U/L 31 U/L Total Bilirubin 0.4 MG/DL 0.4 MG/DL Sodium Level 141 MEQ/L 143 MEQ/L Potassium Level 3.9 MEQ/L 4.1 MEQ/L Chloride Level 106 MEQ/L 111 MEQ/L Carbon Dioxide Level 27.3 MEQ/L 26.0 MEQ/L Anion Gap 8 MEQ/L 6 MEQ/L Estimat Glomerular Filtration Rate 41 ML/MIN 59 ML/MIN Total Creatine Kinase 47 U/L Troponin I LESS THAN 0.02 NG/ML Urine Color YELLOW Urine Turbidity HAZY Urine pH 5.5 Urine Specific [place] 1.020 Urine Protein TRACE mg/dL Urine Glucose (UA) NEG mg/dL Urine Ketones NEG mg/dL Urine Occult Blood NEG Urine Nitrite NEG Urine Bilirubin NEG Urine Urobilinogen LESS THAN 2.0 MG/DL Urine Leukocyte Esterase SMALL Urine RBC 1 /hpf Urine WBC 3 /hpf Urine Squamous Epithelial Cells 3 /hpf Urine Bacteria RARE /hpf Urine Hyaline Casts 9 /lpf Urine Mucus MOD /lpf Microscopic Urinalysis Comment CATH-CULTURE IND Direct Bilirubin 0.1 MG/DL Indirect Bilirubin 0.3 MG/DL Thyroid Stimulating Hormone 3rd Gen 2.580 uIU/ML Random Cortisol 6.0 MCG/DL Microbiology Microbiology 05/08/17 Urine Culture, Received Pending Physical Exam General General Appearance: Well Developed, Well Nourished, No Acute Distress, Comfortable Eyes Eye Exam: Pupils Equal, Pupils Reactive Ears & Nose Ears & Nose Exam: Nasal Mucosa [place] Throat Throat Exam: Oral Mucosa [place] & Moist Neck Neck Exam: Neck Supple, Trachea Midline Pulmonary Resp Exam: Clear Bilaterally, Breath Sounds Equal Cardiology CV Exam: Regular Gastrointestinal/Abdomen GI Exam: Soft, Non-Tender, Bowel Sounds Present, Non-Distended Musculoskeletal MS Exam: Joints Intact Integumentary Skin Exam: Warm, Dry Extremeties Extremities Exam: No Edema, Pedal Pulses Palpable Neurologic Neuro Exam: Alert, Awake, Oriented, Speech Clear, Moving All Extremities Psychiatric Psych Exam: Appropriate Responses VTE Prophylaxis VTE Prophylaxis Device: SCDs Assessment/Plan Assessment/Plan 1. Presyncopal episodes with headache. 2. Possible vertigo 3. Orthostatic hypotension. 4. Epistaxis. 5. Urinary tract infection. 6. COPD and asthma. 7. Dehydration Plan: Continue with hydration, decrease IV fluids to 50 an hour Improving renal function Symptoms likely secondary to dehydration. Positive orthostatics Neurology has been consulted, we will wait further input Imaging studies reviewed, no acute findings Chest x-ray reviewed, cardiomegaly. Decreased IV fluids Continue with antibiotics for UTI, follow culture Echo pending Continue with Antivert for possible vertigo Improved renal function, blood pressure trending upwards. We will resume home medications, Coreg, HCTZ and valsartan Consult physical therapy for mobility DuoNeb's as needed for wheezing Heparin for DVT prophylaxis Labs reviewed, stable Case management for discharge planning, possibly home today or tomorrow If symptoms not improved during increase in activity, may need cardiology evaluation Discussed with RN Discussed with Dr. Granda Discussed with patient and family This patient was seen by myself and Dr. Granda, this note is written in his behalf Dawna Joyner May 09, 2017 10:28
[2017-05-09 12:11] VITALS: BP 127/61; PULSE 76; RESP 18; TEMP 98; O2SAT 96
--- NOTE | 2017-05-09 14:23 | MB ---
cc: JESUS OHARA MD DATE OF CONSULTATION: 05/09/2017 REASON FOR CONSULTATION Presyncope, dizziness. HISTORY OF PRESENT ILLNESS Ms. Winslow is a 77-year-old female who presented to the [facility] Emergency Room for an episode of lightheadedness, mild blurriness of the vision and she thinks she passed out. There was associated mild headache and nosebleed. The patient states that she has had these episodes frequently happening over the last few months after a change in her blood pressure medication was made. She reports that these episodes usually occur while she is up and going, never had an episode when she was seated or laying on her back. The patient has history of COPD and hypertension. Denies any history of stroke or TIA. During the episode the patient states that she did not have double vision, speech difficulty, numbness of the face, weakness of an extremity or convulsions. In the emergency room it was noted that her orthostatic vitals were strongly positive. REVIEW OF SYSTEMS A 12-point review was negative except for what is stated in the HPI. PAST MEDICAL HISTORY 1. Hypertension. 2. Asthma. 3. COPD. 4. Gastroesophageal reflux disease. 5. Rheumatoid arthritis. 6. Osteoporosis. PAST SURGICAL HISTORY 1. Bilateral knee replacement. 2. Cataract surgery. 3. Appendectomy. 4. Hysterectomy. 5. Tonsillectomy. SOCIAL HISTORY Occasional alcohol on social events. Denies alcohol or illicit drug abuse. ALLERGIES TAPE. MEDICATIONS 1. Albuterol. 2. Fish oil. 3. Carvedilol. 4. Losartan. 5. Oxycodone. 6. Hydrochlorothiazide. 7. Symbicort. 8. Lidocaine topical. 9. Prolia. 10. Rasuvo Methotrexate subcutaneously weekly. FAMILY HISTORY Unremarkable and noncontributory. PHYSICAL EXAMINATION GENERAL: Awake, alert, in mild distress. Significant other at the bedside. HEENT: Atraumatic, normocephalic. Intact hearing and intact vision. NECK: No signs of meningeal alteration. No carotid bruits. CARDIOVASCULAR: Regular rate and rhythm. RESPIRATORY: Clear to auscultation. No wheezes. ABDOMEN: Soft, nontender. MUSCULOSKELETAL: Moves extremities, however, there is significant pain mainly in the hands due to chronic rheumatoid arthritis. NEUROLOGIC: Awake, alert and oriented to time, person and place. Intact speech. Intact memory. Cranial nerves II-XII are grossly normal. Upper and lower extremity muscle strength is 5/5 with a lot of give-way due to pain of rheumatoid arthritis. No abnormal movements. Sensation is intact throughout. [id number], llkw-[id number] is intact throughout. Reflexes 1+ bilateral symmetrical. Plantars are bilaterally downgoing. PSYCHIATRIC: Appropriate mood and affect. LABORATORY DATA White blood cells 7.6, hemoglobin 12.4, platelet count 205, sodium 143, chloride 111, anion gap 6, BUN 15, creatinine 0.93, calcium 8.3, INR 0.9. DIAGNOSTIC IMAGING - Head CT scan without contrast was reported as a normal examination. - Brain MRI without contrast revealed mild periventricular and subcortical white matter small vessel ischemic changes bilaterally. No acute infarction or hemorrhage. Small left maxillary mucous retention cyst. - Carotid ultrasound showed no hemodynamically significant stenosis. - Head MRA without contrast revealed patent right posterior communicating artery filling the right posterior cerebral artery, no significant stenosis, occlusion or aneurysm. DIAGNOSTIC IMPRESSION 1. Syncopal episode. 2. Orthostatic hypotension. 3. Dizziness. ASSESSMENT/PLAN - Given the unremarkable nonfocal neurological examination and the absence of an acute neurological abnormality with the positive evidence of orthostatic vitals abnormality, I recommend that the patient follows up with primary care physician and cardiology to work on this cause. There is no need for further neurological workup, and the patient needs to be on aspirin 81 mg. - I reviewed and showed the patient and her significant other the findings on the imaging and I explained to them the current neurologic condition. Thank you for the opportunity to participate in the care of your patient. Followup as outpatient when needed. MD JARAD Rolle/ADRIAN /1:10 PM /1:52 PM ALEKSEY
[2017-05-09 16:41] VITALS: BP_SYST 125; BP_SYST 129; BP_SYST 134; BP_DIAS 59; BP_DIAS 60; BP_DIAS 64; PULSE 72; RESP 18; TEMP 98; O2SAT 98
--- NOTE | 2017-05-09 16:55 | HHI.DCPOC ---
Discharge Care Plan Diagnosis: (1) Orthostatic hypotension (2) Lightheadedness (3) Nystagmus Your Health Problems Are: Difficulty with ADL Goals to Promote Your Health * To prevent worsening of your condition and complications * To maintain your health at the optimal level Directions to Meet Your Goals Take your medications as prescribed Follow your dietary instruction Follow activity as directed Keep your appointments as scheduled Take your immunizations and boosters as scheduled If your symptoms worsen call your PCP, if no PCP go to Urgent Care Center or Emergency Room Smoking is Dangerous to Your Health. Avoid second hand smoke Call the 24-hour hour crisis hotline for domestic abuse at Dawna Joyner. [facility] May 09, 2017 16:55
--- NOTE | 2017-05-09 17:13 | ECHRPT ---
Indication: Shortness of breath CONCLUSIONS The left ventricular systolic function is normal with an estimated ejection fraction in the range of 60-65%. Normal left ventricular size. Wall thickness is normal. No regional wall motion abnormalities are present. Trace mitral valve regurgitation. There is a small pericardial effusion present. BP: 139 / 63 HR: 79 Rhythm: Sinus MEASUREMENTS (Male / Female) Normal Values Technical Quality:Fair 2D ECHO LVOT Diameter 2.0 cm LV Ejection Fraction MOD 4C 65.1 % LV Cardiac Index MOD 4C 1704.0 cm/minm LV Ejection Fraction 4C AL 66.2 % LV Cardiac Index 4C AL 1785.4 cm/minm M-MODE LV Diastolic Diameter MM 5.4 cm 4.2 - 5.9 / 3.9 - 5.3 cm LV Systolic Diameter MM 3.3 cm LV Ejection Fraction MM Teich 68.6 % LV Cardiac Index MM Teich 3977.3 cm/minm IVS Diastolic Thickness MM 1.0 cm 0.6 - 1.0 / 0.6 - 0.9 cm LVPW Diastolic Thickness MM 1.0 cm 0.6 - 1.0 / 0.6 - 0.9 cm LV Relative Wall Thickness MM 0.4 0.24 - 0.42 / 0.22 - 0.42 LV Mass Index MM 109.6 g/m 49 - 115 / 43 - 95 g/m Aortic Root Diameter MM 2.5 cm LA Systolic Diameter MM 2.8 cm LA Ao Ratio MM 1.1 AV Cusp Separation MM 1.9 cm DOPPLER AV Peak Velocity 155.0 cm/s AV Peak Gradient 9.6 mmHg LVOT Peak Velocity 111.0 cm/s LVOT Peak Gradient 4.9 mmHg AV Area Cont Eq pk 2.2 cm MV Peak Velocity 124.0 cm/s MV Peak Gradient 6.2 mmHg MV Mean Velocity 88.0 cm/s MV Mean Gradient 3.0 mmHg MV Area PHT 4.3 cm Mitral E Point Velocity 91.8 cm/s Mitral A Point Velocity 115.0 cm/s Mitral E to A Ratio 0.8 LV E' Lateral Velocity 9.4 cm/s Mitral E to LV E' Lateral Ratio 9.8 LV E' Septal Velocity 7.6 cm/s Mitral E to LV E' Septal Ratio 12.1 PV Peak Velocity 110.0 cm/s PV Peak Gradient 4.8 mmHg FINDINGS LEFT VENTRICLE The left ventricular systolic function is normal with an estimated ejection fraction in the range of 60-65%. Normal left ventricular size. Wall thickness is normal. No regional wall motion abnormalities are present. RIGHT VENTRICLE Normal right ventricular size and systolic function. LEFT ATRIUM The left atrial size is normal. RIGHT ATRIUM The right atrial size is normal. ATRIAL SEPTUM Normal atrial septal thickness without atrial level shunting by limited color doppler interrogation. AORTA The aortic root and proximal ascending aorta are normal in size on limited imaging. MITRAL VALVE Trace mitral valve regurgitation. AORTIC VALVE Trileaflet aortic valve. No aortic valve stenosis or regurgitation. TRICUSPID VALVE Pulmonary arterial systolic pressure could not be estimated due to an insufficient tricuspid valve regurgitation doppler jet for measurement. PULMONARY VALVE The pulmonary valve is not well visualized. VESSELS The inferior vena cava is normal in size. PERICARDIUM There is a small pericardial effusion present. Regi Malloy MD, FACC (Electronically Signed) Final Date:09 May 2017 17:12
--- NOTE | 2017-05-09 20:58 | EKG ---
Date Performed: 05/08/2017 Time Performed: 16:32:14 PTAGE: 77 years EKG: Sinus rhythm NORMAL ECG NO PREVIOUS TRACING DOCTOR: Zhou Duran Interpretating Date/Time 05/09/2017 20:50:06
== END 2017-05-09 18:34 | disposition home or self-care (01) ==
LOC: NEPC 14:45 → NEDA 17:25 → NEPFCDU 21:07
PROVIDERS: ADMIT Specialist; ATTEND Specialist
DX: I95.1 Orthostatic hypotension (principal); H55.00 Unspecified nystagmus; I10 Essential (primary) hypertension; E86.0 Dehydration; N28.9 Disorder of kidney and ureter, unspecified; R04.0 Epistaxis; N39.0 Urinary tract infection, site not specified; J44.9 Chronic obstructive pulmonary disease, unspecified; I51.7 Cardiomegaly; E78.5 Hyperlipidemia, unspecified; K21.9 Gastro-esophageal reflux disease without esophagitis; M06.9 Rheumatoid arthritis, unspecified; M81.0 Age-related osteoporosis without current pathological fracture; Z96.653 Presence of artificial knee joint, bilateral
CPT/HCPCS: 70450; 70544; 70551; 71010; 80048; 80053; 80076; 81001; 82533; 82550; 84443; 84484; 85025; 85610; 85730; 87086; 93005; 93306; 93880; 96372; 96374; 96375; 97162; 99285; G0378; G8987; G8988; J0696; J1644; J2060; J7030